=== PATIENT | female | born 1970 | race Hispanic/Latino ===

== ENCOUNTER 2018-12-14 21:28 | Emergency (ER) | payer MEDICAID, SELFPAY ==
--- NOTE | 2018-12-15 10:58 | RAD ---
RIGHT ELBOW 4 VIEWS: Date: 12/14/18 No fracture or joint effusion seen. All bones appear intact. IMPRESSION: No acute findings. POS: HOME
== END 2018-12-14 22:46 | disposition home or self-care (01) ==
LOC: BURERS 21:28
DX: S50.01XA Contusion of right elbow, initial encounter (principal); Z87.891 Personal history of nicotine dependence; Z86.73 Personal history of transient ischemic attack (TIA), and cerebral infarction without residual deficits; X58.XXXA Exposure to other specified factors, initial encounter

== ENCOUNTER 2019-01-27 16:42 | Emergency (ER) | payer SELFPAY ==
[2019-01-27 17:38] LABS: #Basophils 0.1 thou/uL (0.0-0.2); #Eosinphils 0.3 thou/uL (0.0-0.7); #Lymphocytes 1.4 thou/uL (1.20-3.40); #Monocytes 0.6 thou/uL (0.11-0.59); #Neutrophils 3.5 thou/uL (1.40-6.50); %Basophils 1.6 % (0.0-1.0); %Eosinophils 4.8 % (0.0-10.0); %Lymphocytes 24.2 % (21.0-51.0); %Monocytes 10.7 % (0.0-10.0); %Neutrophils 58.6 % (42.0-75.0); Hemoglobin 11.9 g/dL (12.0-16.0); Mean Corpuscular HGB CONC 32.5 g/dL (32.0-36.0); Mean Corpuscular Volume 92.4 fL (78.0-98.0); Mean Platelet Volume 6.2 fL (7.4-10.4); Platelet Count 353 thou/uL (130-400); RBC Distribution Width 12.1 % (11.5-14.5); Red Blood Cell (RBC) Count 3.96 mill/uL (4.20-5.40); White Blood Cell (WBC) Count 5.9 thou/uL (4.8-10.8)
[2019-01-27 17:49] LABS: BHCG - Serum Negative (NEGATIVE); Pregs Control Background? CLEAR/WHITE (CLR/WHITE); Pregs Control Bar Appear? YES (CONTROL BAR)
[2019-01-27 17:53] LABS: ALT (SGPT) 13 U/L (8-55); AST (SGOT) 17 U/L (5-34); Albumin 3.9 g/dL (3.5-5.0); Alkaline Phosphatase 125 U/L (40-150); Anion Gap 12 mmol/L (10-20); BUN (Urea Nitrogen) 12 mg/dL (7.0-18.7); Bilirubin, Total 0.3 mg/dL (0.2-1.2); Calc. Creatinine Clearance 0 mL/min (70-130); Calcium 9.6 mg/dL (7.8-10.44); Carbon Dioxide 26 mmol/L (22-29); Chloride 105 mmol/L (98-107); Estimated GFR-MDRD 70; Globulin 3.7 g/dL (2.4-3.5); Glucose 108 mg/dL (70-105); Potassium 3.3 mmol/L (3.5-5.1); Protein, Total 7.6 g/dL (6.0-8.3); Sodium 140 mmol/L (136-145)
[2019-01-27] MEDS ORDERED: Ibuprofen 800 MG TAB ONE (17:56)
--- NOTE | 2019-01-27 19:53 | RAD ---
AP PORTABLE CHEST: 01/27/2019 1800 HOURS COMPARISON: 08/12/2014 FINDINGS: The heart is normal in size and the lungs are clear. No acute infiltrate or effusion is seen. There is a difficult to define 1.7 cm opacity in the left lower lobe adjacent to the apex of the heart. I do not know if this is in the lung or in the breast. It may bear further elective followup. It cou ld be nothing more than an area of scarring or could be of greater significance. IMPRESSION: 1. No acute thoracic findings. 2. Equivocal nodular density over the left lung base. Further followup recommended. CODE T POS: HOME
== END 2019-01-27 18:31 | disposition home or self-care (01) ==
LOC: BURERS 16:42
DX: R07.9 Chest pain, unspecified (principal); F41.9 Anxiety disorder, unspecified; M54.2 Cervicalgia; I10 Essential (primary) hypertension; Z86.73 Personal history of transient ischemic attack (TIA), and cerebral infarction without residual deficits; Z87.891 Personal history of nicotine dependence
CPT/HCPCS: 71045; 80053; 84484; 84703; 85025; 93005

== ENCOUNTER 2019-03-07 13:40 | Emergency (ER) | payer SELFPAY ==
--- NOTE | 2019-03-07 17:02 | RAD ---
RIGHT ELBOW FOUR VIEWS: 03/07/19 Comparison is made with a prior study of 12/14/18. No fracture, dislocation, or joint effusion was seen. All bones appear intact. There has been no adve rse change in the bones over time. IMPRESSION: No acute findings. POS: HOME
--- NOTE | 2019-03-07 17:03 | RAD ---
RIGHT HAND THREE VIEWS: 03/07/19 No fracture was seen. The bones of the hand and wrist all appeared intact. IMPRESSION: No acute findings. POS: HOME
== END 2019-03-07 14:45 | disposition home or self-care (01) ==
LOC: BURERS 13:40
DX: S46.911A Strain of unspecified muscle, fascia and tendon at shoulder and upper arm level, right arm, initial encounter (principal); Z86.73 Personal history of transient ischemic attack (TIA), and cerebral infarction without residual deficits; J45.909 Unspecified asthma, uncomplicated; Z87.891 Personal history of nicotine dependence; Y04.0XXA Assault by unarmed brawl or fight, initial encounter

== ENCOUNTER → 2020-08-12 | Outpatient (CLI) | payer OTHER ==
[2020-08-18 13:33] LABS: Hemoglobin 13.4 g/dL (12.0-16.0); Mean Corpuscular Hemoglobin 30.8 pg (27.0-31.0); Mean Corpuscular Volume 91.1 fL (78.0-98.0); Red Blood Cell (RBC) Count 4.36 mill/uL (4.20-5.40)
[2020-08-18 13:34] LABS: #Basophils 0.2 thou/uL (0.0-0.2); #Eosinphils 1.3 thou/uL (0.0-0.7); #Lymphocytes 1.5 thou/uL (1.20-3.40); #Monocytes 0.8 thou/uL (0.11-0.59); #Neutrophils 5.3 thou/uL (1.40-6.50); %Basophils 2.2 % (0.0-1.0); %Eosinophils 14.8 % (0.0-10.0); %Monocytes 8.5 % (0.0-10.0); %Neutrophils 58.5 % (42.0-75.0); Mean Corpuscular HGB CONC 33.8 g/dL (32.0-36.0); Mean Platelet Volume 6.7 fL (7.4-10.4); Platelet Count 350 thou/uL (130-400); RBC Distribution Width 11.6 % (11.5-14.5)
[2020-08-18 13:40] LABS: Anion Gap 14 mmol/L (10-20); BUN (Urea Nitrogen) 15 mg/dL (7.0-18.7); Calc. Creatinine Clearance 0 mL/min (70-130); Carbon Dioxide 20 mmol/L (22-29); Chloride 108 mmol/L (98-107); Potassium 3.8 mmol/L (3.5-5.1); Sodium 138 mmol/L (136-145)
[2020-08-18 13:41] LABS: ALT (SGPT) 17 U/L (8-55); AST (SGOT) 11 U/L (5-34); Alkaline Phosphatase 111 U/L (40-110); Bilirubin, Total 0.4 mg/dL (0.2-1.2); Calcium 9.2 mg/dL (7.8-10.44); Cholesterol 194 mg/dL (< 200 Desired); Globulin 3.9 g/dL (2.4-3.5); Glucose 93 mg/dL (70-105); Protein, Total 7.9 g/dL (6.0-8.3); Triglycerides 96 mg/dL (Less than 150)
[2020-08-18 13:42] LABS: Cardiac Risk 3.8 (Less than 4.5); HDL Cholesterol 51 mg/dL (>60 Neg Risk); LDL Cholesterol, Calculated 124 mg/dL
== END ==
LOC: BURLAB 13:16
PROVIDERS: ATTEND Physician Assistant
DX: R45.86 Emotional lability (principal)
CPT/HCPCS: 80050; 80061

== ENCOUNTER 2021-09-25 17:54 | Emergency (ER) | payer SELFPAY | END 2021-09-25 18:57 | disposition home or self-care (01) | LOC: BURERS 17:54 | DX: S00.83XA Contusion of other part of head, initial encounter (principal); S70.11XA Contusion of right thigh, initial encounter; Z86.73 Personal history of transient ischemic attack (TIA), and cerebral infarction without residual deficits; Z87.891 Personal history of nicotine dependence; W55.82XA Struck by other mammals, initial encounter | CPT/HCPCS: 70450; 70486 ==

== ENCOUNTER 2022-01-01 14:29 | Emergency (ER) | payer SELFPAY ==
[2022-01-01] MEDS ORDERED: Aspirin Chewable 81 MG TAB ONE (15:28)
[2022-01-01] MEDS ORDERED: Acetaminophen 500 MG TAB ONE (15:28)
[2022-01-01] MEDS ORDERED: cloNIDine 0.1 MG TAB ONE (15:28)
[2022-01-01 15:32] LABS: #Basophils 0.2 thou/uL (0.0-0.2); #Eosinphils 0.8 thou/uL (0.0-0.7); #Lymphocytes 1.8 thou/uL (1.20-3.40); #Monocytes 0.3 thou/uL (0.11-0.59); #Neutrophils 3.7 thou/uL (1.40-6.50); %Basophils 2.5 % (0.0-1.0); %Eosinophils 11.5 % (0.0-10.0); %Lymphocytes 26.7 % (21.0-51.0); %Neutrophils 54.4 % (42.0-75.0); Hemoglobin 13.1 g/dL (12.0-16.0); Mean Corpuscular HGB CONC 33.3 g/dL (32.0-36.0); Mean Corpuscular Hemoglobin 30.3 pg (27.0-31.0); Mean Corpuscular Volume 91.2 fL (78.0-98.0); Mean Platelet Volume 6.8 fL (7.4-10.4); Platelet Count 431 thou/uL (130-400); RBC Distribution Width 12.3 % (11.5-14.5); Red Blood Cell (RBC) Count 4.33 mill/uL (4.20-5.40); White Blood Cell (WBC) Count 6.8 thou/uL (4.8-10.8)
[2022-01-01 15:45] LABS: ALT (SGPT) 11 U/L (8-55); AST (SGOT) 12 U/L (5-34); Alkaline Phosphatase 125 U/L (40-110); Anion Gap 14 mmol/L (10-20); BUN (Urea Nitrogen) 11 mg/dL (7.0-18.7); Bilirubin, Total 0.3 mg/dL (0.2-1.2); Calc. Creatinine Clearance 0 mL/min (70-130); Calcium 9.3 mg/dL (7.8-10.44); Carbon Dioxide 20 mmol/L (22-29); Chloride 108 mmol/L (98-107); Estimated GFR 89; Globulin 3.8 g/dL (2.4-3.5); Glucose 128 mg/dL (70-105); Potassium 3.3 mmol/L (3.5-5.1); Protein, Total 7.8 g/dL (6.0-8.3); Sodium 139 mmol/L (136-145)
[2022-01-01] MEDS ORDERED: Potassium Chloride 20 MEQ TAB ONE (16:09)
[2022-01-01 16:18] LABS: Bilirubin Negative (Negative); Blood, Urine Moderate (Negative); Clarity Cloudy (Clear); Glucose, Urine (Dipstick) Negative (Negative); Ketone, Urine Negative (Negative); Leukocyte Small (Negative); Nitrite Positive (Negative); Protein, Urine (Dipstick) Negative (Neg-Trace); Urobilinogen 0.2 mg/dL (Less than 2)
[2022-01-01 16:25] LABS: RBC/HPF 0-3 HPF (0-3)
[2022-01-01 16:26] LABS: Bacteria/HPF 4+ HPF (None Seen)
[2022-01-01] MEDS ORDERED: Sodium Chloride 0.9% 100 ML ONE (17:32)
[2022-01-01] MEDS ORDERED: cefTRIAXone\\ROCEPHIN 1 GM VIAL ONE (17:32)
[2022-01-01] MEDS ORDERED: Mag-Al Plus 1200 MG/1200 MG/120 MG/30 ML UDCUP ONE (17:54)
[2022-01-01] MEDS ORDERED: Morphine 2 MG/ML VIAL ONE (18:29)
[2022-01-01] MEDS ORDERED: Ondansetron PF 4 MG/2 ML Vial ONE ×2 (18:29→18:32)
== END 2022-01-01 19:11 | disposition home or self-care (01) ==
LOC: BURERS 14:29
DX: R00.2 Palpitations (principal); R07.2 Precordial pain; N39.0 Urinary tract infection, site not specified; E87.6 Hypokalemia; I10 Essential (primary) hypertension; Z86.73 Personal history of transient ischemic attack (TIA), and cerebral infarction without residual deficits
CPT/HCPCS: 36415; 71045; 80053; 81003; 81015; 84443; 84484; 85025; 87086; 93005; 96361; 96365; 96375; J0696; J2270; J2405; J3490

== ENCOUNTER 2022-02-26 14:25 | Emergency (ER) | payer OTHER, SELFPAY | END 2022-02-26 14:45 | disposition home or self-care (01) | LOC: BURERS 14:25 | DX: I10 Essential (primary) hypertension (principal); Z86.73 Personal history of transient ischemic attack (TIA), and cerebral infarction without residual deficits | CPT/HCPCS: 99283 ==

== ENCOUNTER 2022-09-14 13:31 | Emergency (ER) | payer OTHER ==
[2022-09-14 13:52] LABS: #Basophils 0.2 thou/uL (0.0-0.2); #Eosinphils 0.4 thou/uL (0.0-0.7); #Lymphocytes 1.8 thou/uL (1.20-3.40); #Monocytes 0.9 thou/uL (0.11-0.59); #Neutrophils 7.5 thou/uL (1.40-6.50); %Basophils 1.5 % (0.0-1.0); %Eosinophils 3.3 % (0.0-10.0); %Lymphocytes 16.7 % (21.0-51.0); %Monocytes 8.6 % (0.0-10.0); %Neutrophils 69.9 % (42.0-75.0); Mean Corpuscular HGB CONC 33.2 g/dL (32.0-36.0); Mean Corpuscular Hemoglobin 29.9 pg (27.0-31.0); Mean Corpuscular Volume 90.1 fl (78.0-98.0); Mean Platelet Volume 6.3 fL (7.4-10.4); Platelet Count 421 10x3/uL (130-400); RBC Distribution Width 11.4 % (11.5-14.5); White Blood Cell (WBC) Count 10.8 10x3/uL (4.8-10.8)
[2022-09-14 14:03] LABS: INR-International Normal Ratio 0.9; Prothrombin Time 12.5 sec (12.0-14.7)
[2022-09-14 14:04] LABS: PTT 32.8 sec (22.9-36.1)
[2022-09-14 14:08] LABS: ALT (SGPT) 15 U/L (8-55); AST (SGOT) 12 U/L (5-34); Albumin 4.4 g/dL (3.5-5.0); Alkaline Phosphatase 122 U/L (40-110); Anion Gap 12 mmol/L (10-20); BUN (Urea Nitrogen) 15 mg/dL (7.0-18.7); Bilirubin, Total 0.3 mg/dL (0.2-1.2); Calc. Creatinine Clearance 0 mL/min (70-130); Calcium 9.8 mg/dL (7.8-10.44); Carbon Dioxide 22 mmol/L (22-29); Chloride 107 mmol/L (98-107); Estimated GFR 91; Globulin 4.4 g/dL (2.4-3.5); Glucose 97 mg/dL (70-105); Potassium 3.6 mmol/L (3.5-5.1); Protein, Total 8.8 g/dL (6.0-8.3); Sodium 137 mmol/L (136-145)
[2022-09-14] MEDS ORDERED: Aspirin Chewable 81 MG TAB ONE ×3 (14:09→14:12)
[2022-09-14] MEDS ORDERED: methylPREDNISolone Acetate 40 mg/ml Vial ONE (14:25)
[2022-09-14] MEDS ORDERED: Famotidine/PF 20 mg/2ml Vial ONE (14:25)
[2022-09-14] MEDS ORDERED: diphenhydrAMINE 50 MG/ML VIAL ONE (14:25)
[2022-09-14] MEDS ORDERED: methylPREDNISolone Sod Succ/PF 125 MG/2 ML VIAL ONE (14:32)
== END 2022-09-14 16:09 | disposition home or self-care (01) ==
LOC: BURERS 13:31
DX: I63.9 Cerebral infarction, unspecified (principal); I10 Essential (primary) hypertension
CPT/HCPCS: 36416; 70450; 80053; 84484; 85025; 85610; 85730; 93005; 96374; 96375; J1030; J1200; J2930; S0028

== ENCOUNTER 2024-06-04 19:36 | Emergency (ER) | payer OTHER ==
[2024-06-04] MEDS ORDERED: Ondansetron ODT 4 MG TAB ONE (19:47)
[2024-06-04] MEDS ORDERED: Acetaminophen 500 MG TAB ONE (19:53)
== END 2024-06-04 20:42 | disposition home or self-care (01) ==
LOC: BURERS 19:36
DX: S06.9X9A Unspecified intracranial injury with loss of consciousness of unspecified duration, initial encounter (principal); R11.2 Nausea with vomiting, unspecified; Z86.73 Personal history of transient ischemic attack (TIA), and cerebral infarction without residual deficits; W01.198A Fall on same level from slipping, tripping and stumbling with subsequent striking against other object, initial encounter
CPT/HCPCS: 70450; 72125; Q0162

== ENCOUNTER 2024-12-02 08:39 | Outpatient (CLI) | payer OTHER | END 2024-12-02 08:40 | disposition home or self-care (01) | LOC: BURRAD 08:39 | PROVIDERS: ATTEND Physician Assistant | DX: M25.521 Pain in right elbow (principal) ==

== ENCOUNTER 2025-05-23 10:56 | Emergency (ER) | payer OTHER ==
[2025-05-23] MEDS ORDERED: Acetaminophen 500 MG TAB ONE (11:12)
[2025-05-23] MEDS ORDERED: predniSONE 20 MG TAB ONE (11:13)
== END 2025-05-23 12:04 | disposition home or self-care (01) ==
LOC: BURERS 10:56
DX: M25.561 Pain in right knee (principal); I10 Essential (primary) hypertension; Z86.73 Personal history of transient ischemic attack (TIA), and cerebral infarction without residual deficits; Z79.899 Other long term (current) drug therapy
CPT/HCPCS: 99283; J7512